=== PATIENT | female | born 1965 | race African-American/Black ===

== ENCOUNTER 2023-01-05 17:48 | Inpatient (IN) | payer OTHER ==
[2023-01-05 18:32] VITALS: BMI 25.0
[2023-01-05] MEDS ORDERED: NALOXONE HCL 0.4 MG/ML VIAL IM PRN (21:25)
[2023-01-05] MEDS ORDERED: guaiFENesin 600 MG TABLET.ER (FP) PO PRN (21:25)
[2023-01-05] MEDS ORDERED: NALOXONE HCL (KLOXXADO) 8 MG SPRAY NS PRN (21:25)
[2023-01-05] MEDS ORDERED: AMMONIUM LACTATE 12% LOTION 225 GM BOTTLE TP PRN (21:25)
[2023-01-05] MEDS ORDERED: POLYETHYLENE GLYCOL (HEALTHYLAX) 3350 17 GM PACKET PO PRN (21:25)
[2023-01-05] MEDS ORDERED: BENZOCAINE/MENTHOL (CHLORASEPTIC ) LOZENGE MM PRN (21:25)
[2023-01-05] MEDS ORDERED: MAGNESIUM HYDROX 2400MG/30ML ORAL SUSPENSION 30 ML CUP PO PRN (21:25)
[2023-01-05] MEDS ORDERED: IBUPROFEN 600 MG TABLET (FP) PO PRN (21:25)
[2023-01-05] MEDS ORDERED: BENZONATATE 200 MG CAPSULE PO PRN (21:25)
[2023-01-05] MEDS ORDERED: COLLOIDAL OATMEAL 1 BAR EACH TP PRN (21:25)
[2023-01-05] MEDS ORDERED: P-EPHED 60MG/TRIPROLIDI 2.5MG TABLET PO PRN (21:25)
[2023-01-05] MEDS ORDERED: LOPERAMIDE HCL 2 MG CAPSULE PO PRN (21:25)
[2023-01-05] MEDS ORDERED: IBUPROFEN 400 MG TABLET (FP) PO PRN (21:25)
[2023-01-06] MEDS ORDERED: TUBERCULIN PPD 5 TU/0.1ML SYRINGE (IN PATIENT USE ONLY) ID ONE (03:00)
[2023-01-06 03:49] VITALS: RESP 18
[2023-01-06] MEDS: THIAMINE HCL 100 MG TABLET (FP) PO SCH ×2 (06:15→21:26)
[2023-01-06] MEDS ORDERED: NICOTINE 7 MG/24 HOURS TOPICAL PATCH TD SCH (10:00)
[2023-01-06] MEDS: PRENATAL VITAMINS W/ FOLIC ACID TABLET (FP) PO SCH (10:04)
[2023-01-06] MEDS: NICOTINE POLACRILEX 2 MG GUM BUC PRN ×2 (10:04→18:40)
[2023-01-06] MEDS: ACETAMINOPHEN 325 MG TABLET (FP) PO PRN (10:05)
[2023-01-06] MEDS: hydrOXYzine PAMOATE 25 MG CAPSULE (FP) PO PRN (10:06)
[2023-01-06] MEDS: MAG HYDROX/AL HYDROX/SIMETH 30 ML UNIT-DOSE CUP PO PRN ×2 (10:07→18:36)
[2023-01-06 11:32] LABS: HEMATOCRIT 40.4 % (32.4-45.2); HEMOGLOBIN 13.7 GM/dL (10.7-15.3); MCH 29.2 pg (25.7-33.7); MEAN CELL VOLUME 85.9 fl (80-96); MEAN PLT VOLUME 8.4 fl (7.5-11.1); PLATELET COUNT 280 10^3/uL (134-434); RBC 4.71 M/mm3 (3.60-5.2); RDW 16.2 % (11.6-15.6); WHITE BLOOD COUNT 7.5 K/mm3 (4.0-10.0)
[2023-01-06] MEDS: SERTRALINE HCL 50 MG TABLET (FP) PO SCH (12:23)
[2023-01-06 13:04] LABS: POTASSIUM 4.2 mmol/L (3.5-5.1)
[2023-01-06 13:07] LABS: CALCIUM 9.5 mg/dL (8.5-10.1)
[2023-01-06 13:08] LABS: BLOOD UREA NITROGEN 14.6 mg/dL (7-18)
[2023-01-06 13:10] LABS: CREATININE 0.7 mg/dL (0.55-1.3)
[2023-01-06 13:11] LABS: TOT PROT 7.3 g/dl (6.4-8.2)
[2023-01-06 13:12] LABS: BILIRUBIN,TOTAL 0.6 mg/dL (0.2-1)
[2023-01-06 13:42] LABS: SYPHILIS W/ RPR CONF REACTIVE (NONREACTIVE)
[2023-01-06] MEDS ORDERED: PANTOPRAZOLE 20 MG TABLET PO PRN (14:20)
[2023-01-06] MEDS: QUEtiapine FUMARATE 50 MG TABLET PO SCH (21:26)
[2023-01-06] MEDS: NAPROXEN 500 MG TABLET PO SCH (21:26)
[2023-01-06] MEDS: traZODone HCL 50 MG TABLET (FP) PO SCH (21:26)
[2023-01-06] MEDS: LIDOCAINE 2.5%/PRILOCAINE 2.5% (5 Gram/TUBE) TP SCH (23:02)
[2023-01-07] MEDS: ACETAMINOPHEN 325 MG TABLET (FP) PO PRN (07:36)
[2023-01-07] MEDS: NICOTINE POLACRILEX 2 MG GUM BUC PRN (09:06)
[2023-01-07] MEDS: MAG HYDROX/AL HYDROX/SIMETH 30 ML UNIT-DOSE CUP PO PRN ×2 (09:08→15:41)
[2023-01-07] MEDS: NICOTINE 14 MG/24 HOURS TOPICAL PATCH TD SCH (09:08)
[2023-01-07] MEDS: SERTRALINE HCL 50 MG TABLET (FP) PO SCH (09:09)
[2023-01-07] MEDS: NAPROXEN 500 MG TABLET PO SCH ×2 (09:09→21:06)
[2023-01-07] MEDS: LIDOCAINE 2.5%/PRILOCAINE 2.5% (5 Gram/TUBE) TP SCH ×2 (09:10→21:07)
[2023-01-07] MEDS: PRENATAL VITAMINS W/ FOLIC ACID TABLET (FP) PO SCH (09:10)
[2023-01-07 15:25] LABS: EPI CELLS >36 /uL (0-25.1); HYALINE CASTS 12 /uL (0-3.1); URINE APPEARANCE TURBID; URINE BACTERIA 90 /uL (0-1359); URINE BILIRUBIN NEGATIVE (NEGATIVE); URINE COLOR DK YELLOW; URINE GLUCOSE (UA) NEGATIVE (NEGATIVE); URINE KETONE NEGATIVE (NEGATIVE); URINE LEUK ESTERASE 3+ (NEGATIVE); URINE NITRITE NEGATIVE (NEGATIVE); URINE PROTEIN NEGATIVE (NEGATIVE); URINE RBC 16 /uL (0-23.9); URINE UROBILINOGEN 0.2 mg/dL (0.2-1.0); URINE WBC 102 /uL (0-25.8)
[2023-01-07] MEDS: traZODone HCL 50 MG TABLET (FP) PO SCH (21:05)
[2023-01-07] MEDS: THIAMINE HCL 100 MG TABLET (FP) PO SCH (21:06)
[2023-01-07] MEDS: QUEtiapine FUMARATE 50 MG TABLET PO SCH (21:06)
[2023-01-08] MEDS: CYCLOBENZAPRINE HCL 10 MG TABLET (FP) PO PRN ×3 (01:48→21:28)
[2023-01-08] MEDS: hydrOXYzine PAMOATE 25 MG CAPSULE (FP) PO PRN (01:48)
[2023-01-08] MEDS: MAG HYDROX/AL HYDROX/SIMETH 30 ML UNIT-DOSE CUP PO PRN (07:22)
[2023-01-08] MEDS: SERTRALINE HCL 50 MG TABLET (FP) PO SCH (09:40)
[2023-01-08] MEDS: PRENATAL VITAMINS W/ FOLIC ACID TABLET (FP) PO SCH (09:40)
[2023-01-08] MEDS: NICOTINE 14 MG/24 HOURS TOPICAL PATCH TD SCH (09:41)
[2023-01-08] MEDS: NAPROXEN 500 MG TABLET PO SCH ×2 (09:41→21:26)
[2023-01-08] MEDS: LIDOCAINE 2.5%/PRILOCAINE 2.5% (5 Gram/TUBE) TP SCH ×2 (09:42→21:40)
[2023-01-08] MEDS: NICOTINE 10 MG CARTRIDGE (INHALER) IH PRN (12:07)
[2023-01-08] MEDS: PANTOPRAZOLE 40 MG TABLET PO PRN (17:25)
[2023-01-08] MEDS: ACETAMINOPHEN 325 MG TABLET (FP) PO PRN (17:25)
[2023-01-08] MEDS: THIAMINE HCL 100 MG TABLET (FP) PO SCH (21:25)
[2023-01-08] MEDS: QUEtiapine FUMARATE 50 MG TABLET PO SCH (21:25)
[2023-01-08] MEDS: traZODone HCL 50 MG TABLET (FP) PO SCH (21:26)
[2023-01-08] MEDS: MELATONIN 5 MG TABLETS PO PRN (21:28)
[2023-01-09] MEDS: PANTOPRAZOLE 40 MG TABLET PO PRN (08:51)
[2023-01-09] MEDS: PRENATAL VITAMINS W/ FOLIC ACID TABLET (FP) PO SCH (10:02)
[2023-01-09] MEDS: NICOTINE 14 MG/24 HOURS TOPICAL PATCH TD SCH (10:03)
[2023-01-09] MEDS: SERTRALINE HCL 50 MG TABLET (FP) PO SCH (10:03)
[2023-01-09] MEDS: NAPROXEN 500 MG TABLET PO SCH ×2 (10:03→21:11)
[2023-01-09] MEDS: LIDOCAINE 2.5%/PRILOCAINE 2.5% (5 Gram/TUBE) TP SCH (10:04)
[2023-01-09] MEDS: NICOTINE POLACRILEX 2 MG GUM BUC PRN (17:31)
[2023-01-09] MEDS: THIAMINE HCL 100 MG TABLET (FP) PO SCH (21:11)
[2023-01-09] MEDS: CYCLOBENZAPRINE HCL 10 MG TABLET (FP) PO PRN (21:11)
[2023-01-09] MEDS: MELATONIN 5 MG TABLETS PO PRN (21:11)
[2023-01-09] MEDS: QUEtiapine FUMARATE 50 MG TABLET PO SCH (21:11)
[2023-01-09] MEDS: traZODone HCL 50 MG TABLET (FP) PO SCH (21:11)
[2023-01-10] MEDS: LIDOCAINE 2.5%/PRILOCAINE 2.5% (5 Gram/TUBE) TP SCH ×3 (00:35→21:38)
[2023-01-10] MEDS: hydrOXYzine PAMOATE 25 MG CAPSULE (FP) PO PRN (03:53)
[2023-01-10] MEDS: ACETAMINOPHEN 325 MG TABLET (FP) PO PRN (06:36)
[2023-01-10] MEDS: PANTOPRAZOLE 40 MG TABLET PO PRN (06:37)
[2023-01-10] MEDS: NAPROXEN 500 MG TABLET PO SCH ×2 (10:11→21:37)
[2023-01-10] MEDS: SERTRALINE HCL 50 MG TABLET (FP) PO SCH (10:11)
[2023-01-10] MEDS: NICOTINE 14 MG/24 HOURS TOPICAL PATCH TD SCH (10:12)
[2023-01-10] MEDS: PRENATAL VITAMINS W/ FOLIC ACID TABLET (FP) PO SCH (10:12)
[2023-01-10] MEDS: NICOTINE POLACRILEX 2 MG GUM BUC PRN (10:14)
[2023-01-10] MEDS ORDERED: QUEtiapine FUMARATE 25 MG TABLET ONE (20:52)
[2023-01-10] MEDS: CYCLOBENZAPRINE HCL 10 MG TABLET (FP) PO PRN (21:37)
[2023-01-10] MEDS: THIAMINE HCL 100 MG TABLET (FP) PO SCH (21:37)
[2023-01-10] MEDS: traZODone HCL 50 MG TABLET (FP) PO SCH (21:37)
[2023-01-10] MEDS: QUEtiapine FUMARATE 50 MG TABLET PO SCH (21:37)
[2023-01-10] MEDS: MELATONIN 5 MG TABLETS PO PRN (21:38)
[2023-01-11] MEDS: ACETAMINOPHEN 325 MG TABLET (FP) PO PRN ×2 (03:13→19:31)
[2023-01-11] MEDS: PANTOPRAZOLE 40 MG TABLET PO PRN (06:47)
[2023-01-11] MEDS: CYCLOBENZAPRINE HCL 10 MG TABLET (FP) PO PRN ×2 (06:50→22:37)
[2023-01-11] MEDS: NICOTINE 14 MG/24 HOURS TOPICAL PATCH TD SCH (10:22)
[2023-01-11] MEDS: LIDOCAINE 2.5%/PRILOCAINE 2.5% (5 Gram/TUBE) TP SCH ×2 (10:22→21:45)
[2023-01-11] MEDS: PRENATAL VITAMINS W/ FOLIC ACID TABLET (FP) PO SCH (10:22)
[2023-01-11] MEDS: SERTRALINE HCL 50 MG TABLET (FP) PO SCH (10:24)
[2023-01-11] MEDS: NICOTINE 10 MG CARTRIDGE (INHALER) IH PRN (10:24)
[2023-01-11] MEDS: NAPROXEN 500 MG TABLET PO SCH ×2 (13:19→21:43)
[2023-01-11] MEDS: traZODone HCL 50 MG TABLET (FP) PO SCH (21:42)
[2023-01-11] MEDS: QUEtiapine FUMARATE 50 MG TABLET PO SCH (21:42)
[2023-01-11] MEDS: THIAMINE HCL 100 MG TABLET (FP) PO SCH (21:43)
[2023-01-11] MEDS: DOCUSATE SODIUM 100 MG CAPSULE (FP) PO SCH (21:43)
[2023-01-11] MEDS: MELATONIN 5 MG TABLETS PO PRN (22:38)
[2023-01-12] MEDS: SIMETHICONE 80 MG TAB.CHEW (FP) PO PRN ×2 (06:45→13:05)
[2023-01-12] MEDS: NAPROXEN 500 MG TABLET PO SCH ×2 (10:38→21:27)
[2023-01-12] MEDS: SERTRALINE HCL 50 MG TABLET (FP) PO SCH (10:38)
[2023-01-12] MEDS: LIDOCAINE 2.5%/PRILOCAINE 2.5% (5 Gram/TUBE) TP SCH ×2 (10:39→21:26)
[2023-01-12] MEDS: PRENATAL VITAMINS W/ FOLIC ACID TABLET (FP) PO SCH (10:39)
[2023-01-12] MEDS: NICOTINE 14 MG/24 HOURS TOPICAL PATCH TD SCH (10:40)
[2023-01-12] MEDS: CYCLOBENZAPRINE HCL 10 MG TABLET (FP) PO PRN (10:40)
[2023-01-12] MEDS: traZODone HCL 50 MG TABLET (FP) PO SCH (21:26)
[2023-01-12] MEDS: QUEtiapine FUMARATE 50 MG TABLET PO SCH (21:26)
[2023-01-12] MEDS: DOCUSATE SODIUM 100 MG CAPSULE (FP) PO SCH (21:27)
[2023-01-12] MEDS: THIAMINE HCL 100 MG TABLET (FP) PO SCH (21:27)
[2023-01-13] MEDS: PRENATAL VITAMINS W/ FOLIC ACID TABLET (FP) PO SCH (10:05)
[2023-01-13] MEDS: NAPROXEN 500 MG TABLET PO SCH ×2 (10:05→21:24)
[2023-01-13] MEDS: SERTRALINE HCL 50 MG TABLET (FP) PO SCH (10:05)
[2023-01-13] MEDS: NICOTINE 14 MG/24 HOURS TOPICAL PATCH TD SCH (10:06)
[2023-01-13] MEDS: NICOTINE 10 MG CARTRIDGE (INHALER) IH PRN ×2 (10:07→21:24)
[2023-01-13] MEDS: NICOTINE POLACRILEX 2 MG GUM BUC PRN (10:08)
[2023-01-13] MEDS: SIMETHICONE 80 MG TAB.CHEW (FP) PO PRN (10:10)
[2023-01-13] MEDS: LIDOCAINE 2.5%/PRILOCAINE 2.5% (5 Gram/TUBE) TP SCH ×2 (10:11→23:54)
[2023-01-13] MEDS: CYCLOBENZAPRINE HCL 10 MG TABLET (FP) PO PRN (21:23)
[2023-01-13] MEDS: MELATONIN 5 MG TABLETS PO PRN (21:23)
[2023-01-13] MEDS: THIAMINE HCL 100 MG TABLET (FP) PO SCH (21:23)
[2023-01-13] MEDS: traZODone HCL 50 MG TABLET (FP) PO SCH (21:23)
[2023-01-13] MEDS: DOCUSATE SODIUM 100 MG CAPSULE (FP) PO SCH (21:24)
[2023-01-13] MEDS: QUEtiapine FUMARATE 50 MG TABLET PO SCH (21:24)
[2023-01-14] MEDS: PRENATAL VITAMINS W/ FOLIC ACID TABLET (FP) PO SCH (09:58)
[2023-01-14] MEDS: SERTRALINE HCL 50 MG TABLET (FP) PO SCH (09:59)
[2023-01-14] MEDS: NAPROXEN 500 MG TABLET PO SCH ×2 (09:59→21:47)
[2023-01-14] MEDS: NICOTINE 14 MG/24 HOURS TOPICAL PATCH TD SCH (09:59)
[2023-01-14] MEDS: LIDOCAINE 2.5%/PRILOCAINE 2.5% (5 Gram/TUBE) TP SCH ×2 (10:00→21:48)
[2023-01-14] MEDS: NICOTINE POLACRILEX 2 MG GUM BUC PRN (10:01)
[2023-01-14] MEDS: PANTOPRAZOLE 40 MG TABLET PO SCH (13:55)
[2023-01-14] MEDS: ACETAMINOPHEN 325 MG TABLET (FP) PO PRN (13:56)
[2023-01-14] MEDS: NICOTINE 10 MG CARTRIDGE (INHALER) IH PRN (19:48)
[2023-01-14] MEDS: DOCUSATE SODIUM 100 MG CAPSULE (FP) PO SCH (21:47)
[2023-01-14] MEDS: THIAMINE HCL 100 MG TABLET (FP) PO SCH (21:47)
[2023-01-14] MEDS: QUEtiapine FUMARATE 100 MG TABLET (FP) PO SCH (21:48)
[2023-01-14] MEDS: traZODone HCL 100 MG TABLET (FP) PO SCH (21:48)
[2023-01-14] MEDS: CYCLOBENZAPRINE HCL 10 MG TABLET (FP) PO PRN (22:23)
[2023-01-15] MEDS: ACETAMINOPHEN 325 MG TABLET (FP) PO PRN (06:07)
[2023-01-15] MEDS: PRENATAL VITAMINS W/ FOLIC ACID TABLET (FP) PO SCH (09:39)
[2023-01-15] MEDS: PANTOPRAZOLE 40 MG TABLET PO SCH (09:40)
[2023-01-15] MEDS: NAPROXEN 500 MG TABLET PO SCH ×2 (09:40→21:11)
[2023-01-15] MEDS: SERTRALINE HCL 50 MG TABLET (FP) PO SCH (09:40)
[2023-01-15] MEDS: NICOTINE 14 MG/24 HOURS TOPICAL PATCH TD SCH (09:41)
[2023-01-15] MEDS: NICOTINE POLACRILEX 2 MG GUM BUC PRN (09:42)
[2023-01-15] MEDS: LIDOCAINE 2.5%/PRILOCAINE 2.5% (5 Gram/TUBE) TP SCH ×2 (09:53→21:11)
[2023-01-15] MEDS: traZODone HCL 100 MG TABLET (FP) PO SCH (21:10)
[2023-01-15] MEDS: DOCUSATE SODIUM 100 MG CAPSULE (FP) PO SCH (21:10)
[2023-01-15] MEDS: THIAMINE HCL 100 MG TABLET (FP) PO SCH (21:11)
[2023-01-15] MEDS: QUEtiapine FUMARATE 100 MG TABLET (FP) PO SCH (21:11)
[2023-01-15] MEDS: CYCLOBENZAPRINE HCL 10 MG TABLET (FP) PO PRN (21:13)
[2023-01-16] MEDS: CYCLOBENZAPRINE HCL 10 MG TABLET (FP) PO PRN ×2 (06:28→21:30)
[2023-01-16] MEDS: PRENATAL VITAMINS W/ FOLIC ACID TABLET (FP) PO SCH (09:46)
[2023-01-16] MEDS: SERTRALINE HCL 50 MG TABLET (FP) PO SCH (09:47)
[2023-01-16] MEDS: NAPROXEN 500 MG TABLET PO SCH ×2 (09:47→21:27)
[2023-01-16] MEDS: PANTOPRAZOLE 40 MG TABLET PO SCH (09:47)
[2023-01-16] MEDS: LIDOCAINE 2.5%/PRILOCAINE 2.5% (5 Gram/TUBE) TP SCH ×2 (09:48→21:32)
[2023-01-16] MEDS: NICOTINE 14 MG/24 HOURS TOPICAL PATCH TD SCH (09:48)
[2023-01-16] MEDS: NICOTINE POLACRILEX 2 MG GUM BUC PRN ×2 (09:49→19:02)
[2023-01-16] MEDS: ACETAMINOPHEN 325 MG TABLET (FP) PO PRN ×2 (12:08→19:04)
[2023-01-16] MEDS: NICOTINE 10 MG CARTRIDGE (INHALER) IH PRN (19:02)
[2023-01-16] MEDS: QUEtiapine FUMARATE 100 MG TABLET (FP) PO SCH (21:27)
[2023-01-16] MEDS: traZODone HCL 100 MG TABLET (FP) PO SCH (21:27)
[2023-01-16] MEDS: THIAMINE HCL 100 MG TABLET (FP) PO SCH (21:29)
[2023-01-16] MEDS: DOCUSATE SODIUM 100 MG CAPSULE (FP) PO SCH (21:43)
[2023-01-17] MEDS: ACETAMINOPHEN 325 MG TABLET (FP) PO PRN (06:39)
[2023-01-17] MEDS: PRENATAL VITAMINS W/ FOLIC ACID TABLET (FP) PO SCH (09:32)
[2023-01-17] MEDS: LIDOCAINE 2.5%/PRILOCAINE 2.5% (5 Gram/TUBE) TP SCH ×2 (09:33→21:11)
[2023-01-17] MEDS: NICOTINE 14 MG/24 HOURS TOPICAL PATCH TD SCH (09:34)
[2023-01-17] MEDS: NAPROXEN 500 MG TABLET PO SCH ×2 (09:35→21:10)
[2023-01-17] MEDS: PANTOPRAZOLE 40 MG TABLET PO SCH (09:35)
[2023-01-17] MEDS: SERTRALINE HCL 50 MG TABLET (FP) PO SCH (09:35)
[2023-01-17] MEDS: CYCLOBENZAPRINE HCL 10 MG TABLET (FP) PO PRN ×2 (09:36→21:12)
[2023-01-17] MEDS: NICOTINE 10 MG CARTRIDGE (INHALER) IH PRN (18:29)
[2023-01-17] MEDS: THIAMINE HCL 100 MG TABLET (FP) PO SCH (21:10)
[2023-01-17] MEDS: traZODone HCL 100 MG TABLET (FP) PO SCH (21:10)
[2023-01-17] MEDS: DOCUSATE SODIUM 100 MG CAPSULE (FP) PO SCH (21:11)
[2023-01-17] MEDS: QUEtiapine FUMARATE 100 MG TABLET (FP) PO SCH (21:11)
[2023-01-18] MEDS: NAPROXEN 500 MG TABLET PO SCH ×2 (09:44→21:13)
[2023-01-18] MEDS: PRENATAL VITAMINS W/ FOLIC ACID TABLET (FP) PO SCH (09:44)
[2023-01-18] MEDS: SERTRALINE HCL 50 MG TABLET (FP) PO SCH (09:44)
[2023-01-18] MEDS: CYCLOBENZAPRINE HCL 10 MG TABLET (FP) PO PRN ×2 (09:45→21:14)
[2023-01-18] MEDS: PANTOPRAZOLE 40 MG TABLET PO SCH (09:45)
[2023-01-18] MEDS: NICOTINE 14 MG/24 HOURS TOPICAL PATCH TD SCH (09:45)
[2023-01-18] MEDS: LIDOCAINE 2.5%/PRILOCAINE 2.5% (5 Gram/TUBE) TP SCH ×2 (09:45→21:15)
[2023-01-18] MEDS: NICOTINE POLACRILEX 2 MG GUM BUC PRN ×2 (09:47→15:15)
[2023-01-18] MEDS: ACETAMINOPHEN 325 MG TABLET (FP) PO PRN (15:09)
[2023-01-18] MEDS: NICOTINE 21 MG/24 HOURS TOPICAL PATCH TD SCH (15:50)
[2023-01-18] MEDS: traZODone HCL 100 MG TABLET (FP) PO SCH (21:13)
[2023-01-18] MEDS: QUEtiapine FUMARATE 100 MG TABLET (FP) PO SCH (21:14)
[2023-01-18] MEDS: THIAMINE HCL 100 MG TABLET (FP) PO SCH (21:14)
[2023-01-18] MEDS: DOCUSATE SODIUM 100 MG CAPSULE (FP) PO SCH (21:14)
[2023-01-18] MEDS: MELATONIN 5 MG TABLETS PO PRN (21:15)
[2023-01-19] MEDS: ACETAMINOPHEN 325 MG TABLET (FP) PO PRN (06:31)
[2023-01-19] MEDS: PANTOPRAZOLE 40 MG TABLET PO SCH (10:03)
[2023-01-19] MEDS: PRENATAL VITAMINS W/ FOLIC ACID TABLET (FP) PO SCH (10:03)
[2023-01-19] MEDS: LIDOCAINE 2.5%/PRILOCAINE 2.5% (5 Gram/TUBE) TP SCH ×2 (10:03→21:12)
[2023-01-19] MEDS: NICOTINE 21 MG/24 HOURS TOPICAL PATCH TD SCH (10:03)
[2023-01-19] MEDS: SERTRALINE HCL 50 MG TABLET (FP) PO SCH (10:03)
[2023-01-19] MEDS: NAPROXEN 500 MG TABLET PO SCH ×2 (10:03→21:10)
[2023-01-19] MEDS: CYCLOBENZAPRINE HCL 10 MG TABLET (FP) PO PRN ×2 (14:22→21:09)
[2023-01-19] MEDS: NICOTINE POLACRILEX 2 MG GUM BUC PRN (14:27)
[2023-01-19] MEDS: QUEtiapine FUMARATE 100 MG TABLET (FP) PO SCH (21:09)
[2023-01-19] MEDS: MELATONIN 5 MG TABLETS PO PRN (21:09)
[2023-01-19] MEDS: THIAMINE HCL 100 MG TABLET (FP) PO SCH (21:10)
[2023-01-19] MEDS: DOCUSATE SODIUM 100 MG CAPSULE (FP) PO SCH (21:10)
[2023-01-19] MEDS: traZODone HCL 100 MG TABLET (FP) PO SCH (21:10)
[2023-01-20 07:32] VITALS: BP 127/81; PULSE 95; TEMP 97.5
[2023-01-20] MEDS: ACETAMINOPHEN 325 MG TABLET (FP) PO PRN (07:49)
[2023-01-20] MEDS: SERTRALINE HCL 50 MG TABLET (FP) PO SCH (09:24)
[2023-01-20] MEDS: PRENATAL VITAMINS W/ FOLIC ACID TABLET (FP) PO SCH (09:25)
[2023-01-20] MEDS: NAPROXEN 500 MG TABLET PO SCH (09:25)
[2023-01-20] MEDS: NICOTINE 21 MG/24 HOURS TOPICAL PATCH TD SCH (09:25)
[2023-01-20] MEDS: LIDOCAINE 2.5%/PRILOCAINE 2.5% (5 Gram/TUBE) TP SCH (09:25)
[2023-01-20] MEDS: CYCLOBENZAPRINE HCL 10 MG TABLET (FP) PO PRN (09:25)
[2023-01-20] MEDS: PANTOPRAZOLE 40 MG TABLET PO SCH (09:25)
[2023-01-20] MEDS: NICOTINE POLACRILEX 2 MG GUM BUC PRN (09:27)
== END 2023-01-20 11:00 | disposition home or self-care (01) | DRG 772 ==
LOC: YASAS 17:48 → Y5N 01-06 01:37
PROVIDERS: ADMIT Allergy & Immunology; ATTEND Psychiatry & Neurology Pain Medicine
PROC: HZ42ZZZ Group Counseling for Substance Abuse Treatment, Cognitive-Behavioral (ICD-10-PCS; principal; 2023-01-06)
DX: F11.20 Opioid dependence, uncomplicated (principal); F14.20 Cocaine dependence, uncomplicated; F17.210 Nicotine dependence, cigarettes, uncomplicated; F19.282 Other psychoactive substance dependence with psychoactive substance-induced sleep disorder; K21.9 Gastro-esophageal reflux disease without esophagitis; N39.0 Urinary tract infection, site not specified; M25.531 Pain in right wrist; Z62.810 Personal history of physical and sexual abuse in childhood; Z20.2 Contact with and (suspected) exposure to infections with a predominantly sexual mode of transmission; Z88.2 Allergy status to sulfonamides
CPT/HCPCS: 36415; 71046-TC-FY; 80053; 81003; 82962; 85027; 86593; 86780; 86803; 87086; 87635; 93005; 93010